=== PATIENT | female | born 1995 | race Hispanic/Latino ===

== ENCOUNTER 2017-09-04 04:18 | Day surgery (SDC) | payer OTHER, SELFPAY ==
[2017-09-04] MEDS ORDERED: Ondansetron ODT 8 MG TAB SL SCH (05:15)
== END 2017-09-04 09:01 | disposition home or self-care (01) ==
LOC: L&D/OP 04:18
PROVIDERS: ATTEND Obstetrics & Gynecology
DX: O98.513 Other viral diseases complicating pregnancy, third trimester (principal); A08.4 Viral intestinal infection, unspecified; Z79.899 Other long term (current) drug therapy; Z3A.29 29 weeks gestation of pregnancy
CPT/HCPCS: 99283

== ENCOUNTER 2017-10-18 12:47 | Outpatient (CLI) | payer OTHER, SELFPAY | END 2017-10-18 12:48 | disposition home or self-care (01) | LOC: BICULT 12:47 | PROVIDERS: ATTEND Emergency Medicine | DX: N63.21 Unspecified lump in the left breast, upper outer quadrant (principal) ==

== ENCOUNTER 2018-01-27 04:39 | Emergency (ER) | payer OTHER, SELFPAY ==
[2018-01-27 05:30] LABS: #Eosinphils 0.1 thou/uL (0.0-0.7); #Lymphocytes 1.8 thou/uL (1.20-3.40); #Monocytes 0.4 thou/uL (0.11-0.59); #Neutrophils 6.2 thou/uL (1.40-6.50); %Basophils 0.3 % (0.0-1.0); %Eosinophils 0.9 % (0.0-10.0); %Lymphocytes 21.1 % (21.0-51.0); %Monocytes 4.6 % (0.0-10.0); %Neutrophils 73.1 % (42.0-75.0); Hemoglobin 11.9 g/dL (12.0-16.0); Mean Corpuscular HGB CONC 35.9 g/dL (32.0-36.0); Mean Corpuscular Hemoglobin 29.5 pg (27.0-31.0); Mean Corpuscular Volume 82.3 fl (81.0-99.0); Mean Platelet Volume 7.2 fL (7.4-10.4); Platelet Count 301 thou/uL (130-400); RBC Distribution Width 14.1 % (11.5-14.5); Red Blood Cell (RBC) Count 4.02 mill/uL (4.20-5.40); White Blood Cell (WBC) Count 8.4 thou/uL (4.8-10.8)
[2018-01-27 06:01] LABS: ALT (SGPT) 21 U/L (8-55); AST (SGOT) 15 U/L (5-34); Albumin 4.6 g/dL (3.5-5.0); Alkaline Phosphatase 50 U/L (40-150); Anion Gap 14 mmol/L (10-20); BUN (Urea Nitrogen) 22 mg/dL (7.0-18.7); Bilirubin, Total 0.3 mg/dL (0.2-1.2); Calc. Creatinine Clearance 0 mL/min (70-130); Calcium 9.7 mg/dL (7.8-10.44); Carbon Dioxide 25 mmol/L (22-29); Chloride 102 mmol/L (98-107); Estimated GFR-MDRD Greater than 90; Globulin 2.8 g/dL (2.4-3.5); Glucose 140 mg/dL (70-105); Lipase 25 U/L (8-78); Potassium 3.6 mmol/L (3.5-5.1); Protein, Total 7.4 g/dL (6.0-8.3); Sodium 137 mmol/L (136-145)
[2018-01-27 08:17] LABS: Bilirubin Negative (Negative); Blood, Urine Negative (Negative); Clarity CLOUDY (Clear); Glucose, Urine (Dipstick) Negative (Negative); Leukocyte Small (Negative); Nitrite Negative (Negative); Protein, Urine (Dipstick) Negative (Neg-Trace); Specific Gravity, Urine 1.019 (1.002-1.036); Urobilinogen 0.2 mg/dL (0.2-1.0)
[2018-01-27 08:20] LABS: Bacteria/HPF 1+ HPF (None Seen); Hyaline Casts/LPF 0-3 HYALINE CAST LPF (0-3 Hyaline); Pathc Cast-AUWi Flag 0.58 (0-2.49)
[2018-01-27 08:23] LABS: Pregnancy Test - Urine (BHCG) Negative (Negative)
[2018-01-27 08:24] LABS: Pregu Control Background? CLEAR/WHITE (CLR/WHITE); Pregu Control Bar Appear? YES (CONTROL BAR); Specific Gravity 1.019 (1.002-1.036)
== END 2018-01-27 08:05 | disposition home or self-care (01) ==
LOC: ERS 04:39
DX: R10.13 Epigastric pain (principal)
CPT/HCPCS: 80053; 81003; 81015; 81025; 83690; 85025; 99284

== ENCOUNTER 2018-03-22 03:52 | Day surgery (SDC) | payer SELFPAY ==
[2018-03-22 04:33] LABS: #Eosinphils 0.1 thou/uL (0.0-0.7); #Lymphocytes 1.5 thou/uL (1.20-3.40); #Monocytes 0.5 thou/uL (0.11-0.59); #Neutrophils 5.7 thou/uL (1.40-6.50); %Basophils 0.4 % (0.0-1.0); %Eosinophils 1.1 % (0.0-10.0); %Lymphocytes 19.6 % (21.0-51.0); %Monocytes 6.2 % (0.0-10.0); %Neutrophils 72.7 % (42.0-75.0); Hemoglobin 12.1 g/dL (12.0-16.0); Mean Corpuscular HGB CONC 34.5 g/dL (32.0-36.0); Mean Corpuscular Hemoglobin 28.5 pg (27.0-31.0); Mean Corpuscular Volume 82.5 fL (78.0-98.0); Platelet Count 260 thou/uL (130-400); RBC Distribution Width 12.3 % (11.5-14.5); Red Blood Cell (RBC) Count 4.27 mill/uL (4.20-5.40); White Blood Cell (WBC) Count 7.8 thou/uL (4.8-10.8)
[2018-03-22] MEDS ORDERED: Mag-Al 1200 mg/1200 mg/30 ML UDCUP ONE (04:33)
[2018-03-22] MEDS ORDERED: Ondansetron ODT 4 MG TAB ONE (04:33)
[2018-03-22] MEDS ORDERED: Lidocaine Viscous Sol 2% 15 ml UD Cup ONE (04:33)
[2018-03-22 04:39] LABS: BHCG - Serum Negative (NEGATIVE); Pregs Control Background? CLEAR/WHITE (CLR/WHITE); Pregs Control Bar Appear? YES (CONTROL BAR)
[2018-03-22 04:55] LABS: ALT (SGPT) 16 U/L (8-55); AST (SGOT) 13 U/L (5-34); Albumin 4.4 g/dL (3.5-5.0); Alkaline Phosphatase 46 U/L (40-150); Anion Gap 13 mmol/L (10-20); BUN (Urea Nitrogen) 18 mg/dL (7.0-18.7); Bilirubin, Total 0.3 mg/dL (0.2-1.2); CK (CPK) 142 U/L (29-168); Calc. Creatinine Clearance 0 mL/min (70-130); Carbon Dioxide 23 mmol/L (22-29); Chloride 104 mmol/L (98-107); Estimated GFR-MDRD Greater than 90; Globulin 2.7 g/dL (2.4-3.5); Glucose 126 mg/dL (70-105); Lipase 30 U/L (8-78); Potassium 3.6 mmol/L (3.5-5.1); Protein, Total 7.1 g/dL (6.0-8.3); Sodium 136 mmol/L (136-145)
[2018-03-22 05:09] LABS: Bilirubin Negative (Negative); Blood, Urine Negative (Negative); Clarity CLEAR (Clear); Glucose, Urine (Dipstick) Negative (Negative); Leukocyte Negative (Negative); Nitrite Negative (Negative); Protein, Urine (Dipstick) Negative (Neg-Trace); Specific Gravity, Urine 1.023 (1.002-1.036); Urobilinogen 0.2 mg/dL (0.2-1.0)
[2018-03-22] MEDS ORDERED: MEROPENEM 1 GM/50 ML 1 GM in Premix Bag 1 BAG IVPB SCH (06:00)
--- NOTE | 2018-03-22 08:44 | ULT ---
PRELIMINARY REPORT/[facility]/EMERGENTY AFTER-HOURS PROCEDURE US Abdomen Limited, Right Upper Quadrant CLINICAL HISTORY: 22 years old, female; Pain; Other: Epigastric pain x 2 days TECHNIQUE: Real-time ultrasound of the right upper quadrant with image documentation. COMPARISON: No relevant prior studies available. FINDINGS: Liver: No acute findings. No mass. No intrahepatic bile duct dilation. Gallbladder: 11 x 7 mm impacted neck stone. Wall thickened at 5 mm. Trace pericholecystic fluid. Common bile duct: Unremarkable as visualized. 5 mm. No stones. No dilation. Pancreas: Unremarkable as visualized. Right kidney: No acute findings. 9. 9 cm. No stones. No solid mass. No hydronephrosis. IMPRESSION: Impacted gallbladder neck stone with wall thickening and pericholecystic fluid. Findings consistent w ith cholecystitis in the appropriate clinical setting. Thank you for allowing us to participate in the care of your patient. Dictated and Authenticated by: Katiuska Mina MD 03/22/2018 5:50 AM Central Time ([place] & [place]) FINAL REPORT GALLBLADDER ULTRASOUND: History: Abdominal pain. Comparison: None. Technique: Utilizing a multihertz transducer, sonograph evaluation of the right upper quadrant was ob tained. FINDINGS: This report is in agreement with the preliminary report by [facility]. There appears to be an impacted calcu chung in the neck of the gallbladder with associated inflammatory change. There is evidence for an acut e cholecystitis. There is right renal cortical thinning. No hydronephrosis. Common bile duct diameter is 0.5 cm. POS: [facility]
[2018-03-22] MEDS ORDERED: Ketorolac Tromethamine 30 MG/ML VIAL ONE (10:17)
[2018-03-22] MEDS ORDERED: Bupivacaine HCl 0.5%/Epinephrine 1:200,000/PF 30 ml Vial ONE (10:51)
[2018-03-22] MEDS ORDERED: Midazolam HCl 2 mg/2 ml Vial ONE (10:52)
[2018-03-22] MEDS ORDERED: HYDROmorphone 0.5 MG/0.5 ML SYRINGE ONE (10:52)
[2018-03-22] MEDS ORDERED: Fentanyl 100 MCG/2 ML VIAL ONE (10:52)
--- NOTE | 2018-03-22 11:06 | HP ---
This 22-year-old female, 3, para 3 with prior C-sections, presents with a 2-year history of e pisodic epigastric right upper quadrant pain consistent with biliary colic. She presents on this occ asion in the emergency room and is noted on ultrasound to have gallstones, normal bile duct caliber, and a normal liver function tests. There is appreciated to be a stone in the gallbladder neck, obstr ucting the gallbladder. She continues to have a significant amount of pain. ALLERGIES: None. TOBACCO: None. ALCOHOL: None. MEDICATIONS: None. PAST SURGICAL/MEDICAL HISTORY: Noncontributory except for three C-sections. PHYSICAL EXAMINATION: VITAL SIGNS: 77 kilograms, 145/92, 65, 16, 98.7 degrees. HEAD, EARS, EYES, NOSE, AND THROAT: Unremarkable. Sclerae nonicteric. Skin nonjaundiced. NEUROLOGICAL: Cranial nerves intact, neurologically intact. No deficits. No ankle edema. Palpable pedal pulses. No venous stasis changes. LYMPHATICS: No lymphadenopathy axilla, neck, groins. LUNGS: Clear to auscultation, no wheezing. CARDIAC: Regular rate and rhythm. No murmur or gallop. ABDOMEN: Soft, tenderness in right upper quadrant, positive Pugh's. EXTREMITIES: Unremarkable. IMAGING: Ultrasound, gallstones, bile duct caliber 4-5 mm. Liver function tests normal. White coun t 8, hemoglobin 12. Comprehensive metabolic profile unremarkable. ASSESSMENT AND PLAN: Acute cholecystitis and cholelithiasis. Recommend laparoscopic cholecystectomy . Risk of infection, bleeding, visceral and biliary injury explained. She consents.
[2018-03-22] MEDS ORDERED: PHENYLEPHRINE-NS 100 MCG/ML 10 ML SYRINGE ONE (14:49)
[2018-03-22] MEDS ORDERED: Dexamethasone 20 MG/5 ML VIAL ONE (14:49)
[2018-03-22] MEDS ORDERED: PROPOFOL 200 MG/20 ML VIAL ONE (14:49)
[2018-03-22] MEDS ORDERED: Lidocaine 1% PF 5 ML VIAL ONE (14:49)
[2018-03-22] MEDS ORDERED: Ondansetron HCl/PF 4 MG/2 ML Vial ONE (14:49)
--- NOTE | 2018-03-22 15:51 | OP ---
PREOPERATIVE DIAGNOSES: Acute on chronic cholecystitis and cholelithiasis. PROCEDURE PERFORMED: Laparoscopic video cholecystectomy. SURGEON: Yony Bowers M.D. ANESTHESIA: General. Local 0.5% Marcaine with epinephrine. FINDINGS: Stone obstructing the gallbladder outlet with a thickened gallbladder wall, edematous wall . Normal liver. PROCEDURE IN DETAIL: The patient was taken to the operating room under general anesthesia, abdomen w as prepared with ChloraPrep, draped in routine fashion. Local anesthetic mixture infiltrated into sk in and subcutaneous tissue at each port site. Infraumbilical incision made and pneumoperitoneum to 1 5 mmHg obtained with Veress needle, replacing with 5-port and video laparoscope inserted. Right subx iphoid incision made and 11 port placed. Right subcostal incision made, mid clavicular anterior axil jeff lines and 5 ports placed. Liver appeared to be normal, gallbladder was distended, tense, thicke santhosh edematous wall. Fundus was difficult to grasp, but nonetheless grasped, reflected cephalad, evid ent grasped at the lateral edges, stone obstructing the gallbladder outlet. Cystic artery and duct d issected free. Critical view obtained. Cystic artery and duct doubly clipped proximally, divided, a nd gallbladder dissected free from the liver bed obtaining good hemostasis prior to division of final peritoneal attachments. Gallbladder and contents removed and submitted to Pathology. Good hemostas is ensured in liver bed with cautery. Irrigant and pneumoperitoneum evacuated. All this instruments removed and all skin incisions approximated with interrupted subdermal 4-0 Monocryl and DermaGlue ap plied.
== END 2018-03-22 15:13 | disposition home or self-care (01) ==
LOC: ERS 03:52 → ER/OP 09:45 → ERS 15:13
PROVIDERS: ATTEND Specialist
PROC: 0FT44ZZ Resection of Gallbladder, Percutaneous Endoscopic Approach (ICD-10-PCS; principal; 2018-03-22)
DX: K80.12 Calculus of gallbladder with acute and chronic cholecystitis without obstruction (principal)
CPT/HCPCS: 36415; 76705; 80053; 81003; 82550; 83690; 84703; 85025; 88304; 93005; 96361; 96365; 96375; J0131; J0670; J1100; J1170; J1885; J2001; J2185; J2250; J2270; J2405; J2704; J3010; Q0162